=== PATIENT | female | born 1955 | race Caucasian/White ===

== ENCOUNTER 2017-09-04 17:13 | Emergency (ER) | payer MEDICARE, OTHER ==
[~2017-09-04] VITALS: Ht 162.6 cm; Wt 99.3 kg
[2017-09-04] MEDS ORDERED: METOPROLOL TART50 MG PO (20:13)
[2017-09-04] MEDS ORDERED: DEXAMETHAS0.5 MG/5 M PO (20:15)
[2017-09-04] MEDS ORDERED: CLOTRIMAZOLE10 MG MM (20:15)
[2017-09-04] MEDS ORDERED: GEMFIBROZIL600 MG PO (20:15)
[2017-09-04] MEDS ORDERED: TRIAMTERENE-HC1 EAC1 PO (20:16)
[2017-09-04] MEDS ORDERED: GLIMEPIRIDE1 MG PO (20:16)
[2017-09-04] MEDS ORDERED: NORTRIPTYLINE H10 MG PO (20:16)
[2017-09-04] MEDS ORDERED: OMEPRAZOLE20 MG PO (20:16)
[2017-09-04] MEDS ORDERED: GABAPENTIN600 MG PO (20:16)
[2017-09-04] MEDS ORDERED: ZANAFLEX4 MG PO (20:17)
[2017-09-04] MEDS ORDERED: OXYCODON-ACETA1 EAC2 PO (20:17)
[2017-09-04] MEDS ORDERED: MOBIC7.5 MG PO (20:17)
== END 2017-09-04 20:58 | disposition home or self-care (01) ==
LOC: ED 17:13
PROC: 2W3KX1Z Immobilization of Left Finger using Splint (ICD-10-PCS; principal; 2017-09-04)
DX: S62.635A Displaced fracture of distal phalanx of left ring finger, initial encounter for closed fracture (principal); E11.9 Type 2 diabetes mellitus without complications; I10 Essential (primary) hypertension; Z87.891 Personal history of nicotine dependence; Z88.0 Allergy status to penicillin; Z88.2 Allergy status to sulfonamides; Z79.84 Long term (current) use of oral hypoglycemic drugs; Z79.899 Other long term (current) drug therapy; W23.0XXA Caught, crushed, jammed, or pinched between moving objects, initial encounter
CPT/HCPCS: 29130; 73140; 99283

== ENCOUNTER 2017-09-12 15:46 | Emergency (ER) | payer MEDICARE, OTHER ==
[~2017-09-12] VITALS: Ht 162.6 cm; Wt 99.3 kg
[~2017-09-12 15:46] MED LIST: CLOTRIMAZOLE10 MG MM; DEXAMETHAS0.5 MG/5 M PO; GABAPENTIN600 MG PO; GEMFIBROZIL600 MG PO; GLIMEPIRIDE1 MG PO; METOPROLOL TART50 MG PO; MOBIC7.5 MG PO; NORTRIPTYLINE H10 MG PO; OMEPRAZOLE20 MG PO; OXYCODON-ACETA1 EAC2 PO; TRIAMTERENE-HC1 EAC1 PO; ZANAFLEX4 MG PO
[2017-09-12] MEDS ORDERED: ZITHROMAX250 MG PO (17:45)
[2017-09-12] MEDS ORDERED: MECLIZINE HCL25 MG PO (17:45)
== END 2017-09-12 18:13 | disposition home or self-care (01) ==
LOC: ED 15:46
DX: H83.09 Labyrinthitis, unspecified ear (principal); E87.6 Hypokalemia; I10 Essential (primary) hypertension; E11.9 Type 2 diabetes mellitus without complications; Z88.0 Allergy status to penicillin; Z88.2 Allergy status to sulfonamides; Z79.899 Other long term (current) drug therapy; Z79.84 Long term (current) use of oral hypoglycemic drugs
CPT/HCPCS: 36415; 70450; 80053; 85025; 99284